=== PATIENT | male | born 1955 | race Hispanic/Latino ===

== ENCOUNTER 2018-04-28 16:13 | Emergency (ER) | payer MEDICARE, OTHER ==
[2018-04-28] MEDS ORDERED: Acetaminophen 500 MG TAB ONE (16:44)
== END 2018-04-28 16:55 | disposition home or self-care (01) ==
LOC: ERS 16:13
DX: B09 Unspecified viral infection characterized by skin and mucous membrane lesions (principal); E78.5 Hyperlipidemia, unspecified; I10 Essential (primary) hypertension; Z85.07 Personal history of malignant neoplasm of pancreas
CPT/HCPCS: 99283

== ENCOUNTER 2018-05-02 09:53 | Inpatient (IN) | payer MEDICARE ==
[2018-05-02] MEDS ORDERED: Ketorolac Tromethamine 30 MG/ML VIAL ONE (12:49)
[2018-05-02 13:20] LABS: Hemoglobin 13.6 g/dL (14.0-18.0); Mean Corpuscular HGB CONC 31.2 g/dL (32.0-36.0); Mean Corpuscular Hemoglobin 28.2 pg (27.0-31.0); Mean Corpuscular Volume 90.2 fL (78.0-98.0); Mean Platelet Volume 8.4 fL (7.4-10.4); Platelet Count 271 thou/uL (130-400); RBC Distribution Width 14.7 % (11.5-14.5); Red Blood Cell (RBC) Count 4.82 mill/uL (4.70-6.10); White Blood Cell (WBC) Count 6.7 thou/uL (4.8-10.8)
--- NOTE | 2018-05-02 13:45 | RAD ---
RIGHT HAND RADIOGRAPHS THREE VIEWS: Date: 05-02-18 Provided Clinical History: Pain. FINDINGS: Comparison is made with a study dated 01-22-17. There is no evidence for fracture. There is an area of cortical concavity involving the central aspec ts of the third metacarpal head. Joint spaces appear preserved. Alignment appears anatomic. Bone mine ralization appears normal. No periarticular erosive changes are seen. IMPRESSION: Cortical concavity involving the third metacarpal head centrally, possibly reflecting changes of oste onecrosis with subchondral collapse. POS: TPC
[2018-05-02 13:50] LABS: ALT (SGPT) 13 U/L (8-55); AST (SGOT) 13 U/L (5-34); Albumin 4.8 g/dL (3.4-4.8); Alkaline Phosphatase 114 U/L (40-150); Anion Gap 16 mmol/L (10-20); BUN (Urea Nitrogen) 18 mg/dL (8.4-25.7); Bilirubin, Total 0.3 mg/dL (0.2-1.2); Calc. Creatinine Clearance 0 mL/min (70-130); Calcium 10.6 mg/dL (7.8-10.44); Carbon Dioxide 24 mmol/L (23-31); Chloride 98 mmol/L (98-107); Estimated GFR-MDRD 89; Globulin 4.1 g/dL (2.4-3.5); Glucose 109 mg/dL (80-115); Protein, Total 8.9 g/dL (5.8-8.1); Sodium 134 mmol/L (136-145)
[2018-05-02 13:52] LABS: Anisocytosis SLIGHT = 6-15 cells (100X) (0-5/hpf); Band 2 % (5-11); Lymphocytes 10 % (21-51); MDiff Complete? YES; Monocytes 5 % (0-10); Neutrophil 83 % (42-75); Platelet Morphology Comment Appears Adequate
[2018-05-02] MEDS ORDERED: Clindamycin/D5W 900 mg/50 ml Premix Bag ONE ×2 (14:40→14:41)
[2018-05-02] MEDS ORDERED: Piperacillin/Tazobactam 4.5 GM VIAL ONE ×2 (14:40→14:41)
[2018-05-02] MEDS ORDERED: Ondansetron PF 4 MG/2 ML Vial IVP PRN (19:21)
[2018-05-02] MEDS ORDERED: HYDROcodone/Acetaminophen 5/325 mg Tablet PO PRN ×2 (19:21)
[2018-05-02] MEDS ORDERED: Ondansetron ODT 4 MG TAB SL PRN (19:21)
[2018-05-02] MEDS ORDERED: Acetaminophen 325 MG TAB PO PRN (19:56)
[2018-05-02] MEDS: Sodium Chloride 0.9% 1,000 ML IV SCH (20:46)
[2018-05-02] MEDS: Clindamycin/D5W 900 MG in Premix Bag 1 BAG IVPB SCH (20:49)
[2018-05-02] MEDS: Ketorolac Tromethamine 30 MG/ML VIAL IVP PRN (21:40)
[2018-05-02] MEDS: Piperacillin/Tazobactam 4.5 GM in Sodium Chloride 0.9% 100 ML IVPB SCH (21:42)
[2018-05-02] MEDS: Famotidine 20 MG TAB PO SCH (21:46)
--- NOTE | 2018-05-02 22:44 | HP ---
PRIMARY CARE PHYSICIAN: None. CHIEF COMPLAINT: Right hand and arm rash. HISTORY OF PRESENT ILLNESS: Mr. Marianne Groves is a pleasant 63-year-old male with past medical history of hypertension, hyperlipidemia, and pancreatic cancer. He had presented to [facility] for worsening rash and pain of his right arm. He was seen in the emergency department about 4 days ago and was treated with oral prednisone for 5 days. At this time, it was thought that he had a rash similar to [id number]. However, over the last 2 to 3 days, the rash had worsened and had spread up his right forearm. He presented today with worsening rash and pain /10. He was given IV Toradol 15 mg, which had resolved his pain. The patient's vital signs remained stable. He had remained afebrile. Lab work did not show any elevated white count. However, there was a concern for cellulitic rash. Therefore, blood cultures were obtained and he was started on IV Zosyn, vancomycin and clindamycin. He had denied any fever or chills. Denies any chest pain, shortness of breath, or abdominal pain. He denies any nausea or vomiting. He had stated that the pain started in his fingertips and went on right arm. However, this had resolved after the dose of Toradol. It was determined that the patient would be admitted under observation, Dr. Vega with Infectious Disease will be consulted for further evaluation and possible recommendations. REVIEW OF SYSTEMS: All other systems reviewed and found to be negative unless mentioned in the HPI. PAST MEDICAL HISTORY: Pancreatic cancer, hypertension, and hyperlipidemia. PAST SURGICAL HISTORY: None. PSYCHIATRIC HISTORY: None. SOCIAL HISTORY: Denies any alcohol, tobacco, or illicit drug use. KNOWN ALLERGIES: None. CURRENT HOME MEDICATIONS: 1. Prednisone 20 mg oral once daily. 2. Atorvastatin 40 mg p.o. daily. PHYSICAL EXAMINATION: VITAL SIGNS: BP 136/71, pulse 64, respirations 18, temp 97.8 degrees Fahrenheit, O2 saturations 95% on room air. GENERAL: The patient is awake, alert, and oriented x3. No acute distress noted. HEENT: Head is atraumatic, normocephalic. Pupils are round and reactive to light. Extraocular muscles intact. Moist mucous membranes are noted. NECK: Soft and supple. No JVD. No bruit noted. CARDIOVASCULAR: Positive S1 and S2. Regular rate and rhythm. No murmurs auscultated. RESPIRATORY: Clear to auscultation bilaterally. No wheezes, rales, or rhonchi. ABDOMEN: Soft, nontender. Bowel sounds present. 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 NEUROLOGIC: Cranial nerves 2 through 12 grossly intact. No focal deficits noted. Speech intact and normal. Gait is normal. PSYCHIATRIC: Good mood and affect. SKIN: Warm, dry, and intact. The patient with vesicular and pustular-like rash with surrounding erythema on the right side, diffuse patches on palmar and dorsal side of right hand, tracking up right arm. [id number] warmth and tenderness to palpation noted with no drainage. LABORATORY DATA: WBC 6.7, RBC 4.82, hemoglobin 13.6, and platelets 271. Sedimentation rate 50. Sodium 134, potassium 4.0, anion gap 16, BUN 18, creatinine 0.86, estimated GFR 89, glucose 109. Lactic acid 0.8. CRP 2.1. X-ray of right hand displayed no evidence for fracture. However, there was an area of cortical concavity involving the central aspects of the third metacarpal head. Joint spaces appear preserved in alignment and appeared anatomic. Bone mineralization appears normal with no periarticular erosion changes seen. ASSESSMENT AND PLAN: 1. Cellulitic pustular rash, blood cultures were obtained and await for results. Continue IV antibiotics, started in the emergency department. Consult placed for Dr. Vega, Infectious Disease, for further evaluation. Continue pain regimen with IV Toradol as needed along with acetaminophen. 2. Hypertension, currently stable at this time. The patient does not take any home medications. Continue to monitor vital signs closely with further adjustments pending clinical findings. 3. Hyperlipidemia. Continue the patient's home dose of atorvastatin. 4. Deep venous thrombosis and gastrointestinal prophylaxis. 5. Code status. Full code. DISPOSITION: Pending clinical findings and further workup. The patient will likely be discharged home under 2 midnights with close outpatient followup. Job ID: [id number]
[2018-05-03] MEDS ORDERED: Prevnar 13-Val Conj/PF 0.5 ML SYRINGE IM ONE ×2 (00:30→09:00)
[2018-05-03] MEDS: Clindamycin/D5W 900 MG in Premix Bag 1 BAG IVPB SCH (02:17)
[2018-05-03] MEDS: Piperacillin/Tazobactam 4.5 GM in Sodium Chloride 0.9% 100 ML IVPB SCH (02:55)
[2018-05-03] MEDS ORDERED: Vancomycin HCl 1 GM in Premix Bag 1 BAG IVPB SCH (03:30)
[2018-05-03] MEDS: Sodium Chloride 0.9% 1,000 ML IV SCH ×3 (06:31→13:00)
[2018-05-03 06:50] LABS: Anion Gap 11 mmol/L (10-20); BUN (Urea Nitrogen) 20 mg/dL (8.4-25.7); Calc. Creatinine Clearance 0 mL/min (70-130); Carbon Dioxide 24 mmol/L (23-31); Chloride 105 mmol/L (98-107); Estimated GFR-MDRD 74; Glucose 112 mg/dL (80-115); Potassium 4.5 mmol/L (3.5-5.1); Sodium 135 mmol/L (136-145)
[2018-05-03 07:19] LABS: Band 1 % (5-11); Eosinophils 1 % (0-10); Lymphocytes 32 % (21-51); MDiff Complete? YES; Mean Corpuscular Volume 90.5 fL (78.0-98.0); Mean Platelet Volume 8.3 fL (7.4-10.4); Monocytes 15 % (0-10); Neutrophil 51 % (42-75); Ovalocytes SLIGHT = 2-5 cells (100X) (0-1/hpf); Platelet Count 222 thou/uL (130-400); Platelet Morphology Comment Appears Adequate; Polychromasia SLIGHT = 2-3 cells (100X) (0-2/hpf); RBC Distribution Width 14.5 % (11.5-14.5); Red Blood Cell (RBC) Count 3.79 mill/uL (4.70-6.10); White Blood Cell (WBC) Count 5.4 thou/uL (4.8-10.8)
[2018-05-03] MEDS: Ketorolac Tromethamine 30 MG/ML VIAL IVP PRN ×2 (07:53→15:14)
[2018-05-03] MEDS: Enoxaparin Sodium 40 MG/0.4 ML SYRINGE SC SCH (07:55)
[2018-05-03] MEDS: Famotidine 20 MG TAB PO SCH ×2 (07:55→20:20)
[2018-05-03] MEDS ORDERED: Clindamycin/D5W 600 MG in Premix Bag 1 BAG IVPB SCH (08:00)
[2018-05-03 11:44] VITALS: BMI 23.3
[2018-05-03] MEDS ORDERED: Labetalol HCl 100 MG/20 ML VIAL SLOW IVP PRN (12:05)
[2018-05-03] MEDS: hydrALAZINE 20 MG/ML VIAL SLOW IVP PRN (13:01)
--- NOTE | 2018-05-03 14:03 | PDOC.PN ---
- Subjective Encounter Start Date: 05/03/18 Encounter Start Time: 13:00 Subjective: Patient reports pain earlier today but better after medications -: Denies dyspnea, chills, CP or palpations. - Objective Resuscitation Status - Order Detail: 05/02/18 19:56 Resuscitation Status Routine Co-Sign Provider: Resuscitation Status: FULL: Full Resuscitation Vital Signs & Weight: Vital Signs (12 hours) Temp Pulse Resp BP Pulse Ox 05/03/18 13:01 54 L 05/03/18 11:27 97.8 F 54 L 20 193/81 H 05/03/18 07:45 98.3 F 63 20 180/80 H 96 05/03/18 03:57 97.6 F 60 16 132/61 Weight Weight 63.5 kg I&O: 05/02/18 05/03/18 05/04/18 06:59 06:59 06:59 Intake Total 1366 Output Total 350 540 Balance 1016 -540 Result Diagrams: 05/03/18 06:04 05/03/18 06:04 Phys Exam - Physical Examination Constitutional: NAD HEENT: PERRLA, moist MMs Neck: no nodes, no JVD Respiratory: no wheezing, clear to auscultation bilateral Cardiovascular: RRR Gastrointestinal: soft, non-tender edema and erythema noted to right palm with lesions Neurological: non-focal, normal sensation, moves all 4 limbs Lymphatic: no nodes Psychiatric: normal affect, A&O x 3 Skin: cap refill <2 seconds Deviation from normal: Vesicles on erythemic bases on RT C5, C6, C7, C8 dermatones with overlying -: cellulitis on right palm Dx/Plan (1) Shingles Code(s): B02.9 - ZOSTER WITHOUT COMPLICATIONS Status: Acute (2) Cellulitis Code(s): L03.90 - CELLULITIS, UNSPECIFIED Status: Acute (3) Hypertension Code(s): I10 - ESSENTIAL (PRIMARY) HYPERTENSION Status: Chronic (4) Hyperlipemia Code(s): E78.5 - HYPERLIPIDEMIA, UNSPECIFIED Status: Chronic - Plan cont current plan of care, continue antibiotics Will continue ABX for now, Dr. Vega to see and will scrape one of the -: lesions to sent off for viral pathology. Thinks it is likely shingles -: with cellulitis. Will add anti-viral medication -: Home medication is being added, will restart -: Recheck labs in AM, monitor VS * . Review of Systems - Review of Systems Skin: Rash, Lesions (pain, redness, and warmth with lesions to palm and right arm) - Medications/Allergies Allergies/Adverse Reactions: Allergies Allergy/AdvReac Type Severity Reaction Status Date / Time No Known Drug Allergies Allergy Verified 05/02/18 19:53 Medications: Current Medications Acetaminophen (Tylenol) 650 mg PO Q4H PRN PRN Reason: Headache/Fever/Mild Pain (1-3) Enoxaparin Sodium (Lovenox) 40 mg SC 0900 [facility] Last Admin: 05/03/18 07:55 Dose: 40 mg Famotidine (Pepcid) 20 mg PO BID [facility] Last Admin: 05/03/18 07:55 Dose: 20 mg Hydralazine HCl (Apresoline) 10 mg SLOW IVP Q4H PRN PRN Reason: SBP > 180 and HR < 70 Last Admin: 05/03/18 13:01 Dose: 10 mg Sodium Chloride (Normal Saline 0.9%) 1,000 mls @ 75 mls/hr IV .[id number] [facility] Last Admin: 05/03/18 13:00 Dose: 1,000 mls Ketorolac Tromethamine (Toradol) 15 mg IVP Q6H PRN PRN Reason: Pain Stop: 05/07/18 20:26 Last Admin: 05/03/18 07:53 Dose: 15 mg Labetalol HCl (Normodyne) 20 mg SLOW IVP Q4H PRN PRN Reason: SBP > 180 and HR >/= 70 Sodium Chloride (Flush - Normal Saline) 10 ml IVF Q12HR [facility] Last Admin: 05/03/18 07:56 Dose: Not Given Sodium Chloride (Flush - Normal Saline) 10 ml IVF PRN PRN PRN Reason: Saline Flush Valacyclovir HCl (Valtrex) 1,000 mg PO TID [facility]
[2018-05-03] MEDS: valACYclovir 500 MG TAB PO SCH ×2 (15:43→20:19)
--- NOTE | 2018-05-03 15:49 | HP ---
The patient presented with a 6-day history of a painful rash starting on his palm of his right hand ascending into his upper arm. The rash is a classic dermatomal pattern from the ulnar surface of his right palm up his arm. The area on his hand acts as a secondary cellulitis. He will be treated with IV antibiotics and oral Valtrex. Job ID: [id number]
[2018-05-03] MEDS: HYDROcodone/Acetaminophen 7.5/325 mg Tablet PO PRN (21:06)
--- NOTE | 2018-05-03 23:05 | CON ---
DATE OF CONSULTATION: REASON FOR CONSULTATION: Skin lesion. HISTORY OF PRESENT ILLNESS: This is a 63-year-old male who has a history of hypertension and malignancy, which was diagnosed after he developed some nonspecific symptoms through imaging studies of his abdomen. Although in the H and P on admission, pancreatic cancer is mentioned. 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 This was managed with radiation therapy. He has not had a recurrence since for the past 3 years, which makes it unlikely that he has pancreatic cancer. The whole treatment was done at [facility] and he has a followup coming up in May. He was admitted because of new onset of skin rash in the right upper extremity extending from the forearm to the hand. It started in the palmar aspect of the right hand. He was seen in the emergency room and given oral prednisone and then the rash worsened and started spreading up his forearm associated with quite a bit of pain. No headaches. No visual symptoms, sore throat, odynophagia, or dysphagia. No cough, sputum production, or chest pain. No abdominal pain or diarrhea. No genitourinary symptoms. No joint symptoms. No neurological symptoms. 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 PAST SURGICAL HISTORY: No surgical history. PSYCHIATRIC HISTORY: None. SOCIAL HISTORY: Never smoker. [place] in town with family. ALLERGIES: NONE. CURRENT MEDICATION LIST: Includes; 1. Central. 2. Lovenox. 3. Pepcid. 4. Apresoline. 5. Toradol. 6. Normodyne. 7. Valacyclovir. PHYSICAL EXAMINATION: VITAL SIGNS: Normal. SKIN: Shows the pustular rash, dermatomal distribution C5 through C7, right upper extremity. No lymphadenopathy. HEENT: Noncontributory. NECK: Supple. LUNGS: Symmetric, clear breath sounds. CARDIAC: S1, S2. Regular rate. No S3 or S4. ABDOMEN: Soft, not distended or tender. No ascites. No bladder distention. No genital abnormalities. MUSCULOSKELETAL: No joint inflammatory activity. Pulses 1+ in dorsalis pedis. Moves extremities equally. Cognitive function appears to be intact. LABORATORY DATA: White cell count 6.7 and 5.4, hemoglobin 13.6, platelets 271, 83% neutrophils and 2% bands, lymphocytes 10% and 32%. Chemistry with a sodium 134, creatinine 0.86, calcium 10.6 and 9.0. Transaminases and alkaline phosphatase normal. CRP 2.10, albumin 4.8, globulin 4.1. Two sets of blood cultures thus far no growth. There is a hand x-ray from admission with cortical concavity third metacarpal head, possibly reflecting changes of osteonecrosis. ASSESSMENT: Some form of retroperitoneal malignancy, which was managed with radiation therapy at [facility], this was 3 years ago. The family states that it was not pancreatic cancer, now the patient has this pustular lesion and dermatomal distribution. DISCUSSION: The most likely scenario is herpes zoster in the lower cervical dermatome on the right side. We will submit the herpes zoster or varicella zoster virus PCR from swab from one of the lesions. Start Valtrex. Other possibilities would include herpes simplex enteroviral infection and pustular dermatitis, but this is much less likely than VZV infection recurrence. Job ID: [id number]
[2018-05-04] MEDS: Sodium Chloride 0.9% 1,000 ML IV SCH ×2 (00:27→12:22)
[2018-05-04] MEDS: Ketorolac Tromethamine 30 MG/ML VIAL IVP PRN ×2 (05:31→15:08)
[2018-05-04 07:20] LABS: #Eosinphils 0.2 thou/uL (0.0-0.7); #Lymphocytes 1.6 thou/uL (1.20-3.40); #Monocytes 0.8 thou/uL (0.11-0.59); #Neutrophils 4.2 thou/uL (1.40-6.50); %Basophils 0.3 % (0.0-1.0); %Eosinophils 2.9 % (0.0-10.0); %Lymphocytes 24.1 % (21.0-51.0); %Monocytes 11.2 % (0.0-10.0); %Neutrophils 61.6 % (42.0-75.0); Hemoglobin 12.2 g/dL (14.0-18.0); Mean Corpuscular HGB CONC 32.3 g/dL (32.0-36.0); Mean Corpuscular Volume 89.9 fL (78.0-98.0); Platelet Count 258 thou/uL (130-400); RBC Distribution Width 14.7 % (11.5-14.5); Red Blood Cell (RBC) Count 4.19 mill/uL (4.70-6.10); White Blood Cell (WBC) Count 6.8 thou/uL (4.8-10.8)
[2018-05-04 07:41] LABS: Anion Gap 11 mmol/L (10-20); BUN (Urea Nitrogen) 14 mg/dL (8.4-25.7); Calc. Creatinine Clearance 79 mL/min (70-130); Calcium 9.6 mg/dL (7.8-10.44); Carbon Dioxide 25 mmol/L (23-31); Chloride 105 mmol/L (98-107); Estimated GFR-MDRD Greater than 90; Glucose 112 mg/dL (80-115); Potassium 4.5 mmol/L (3.5-5.1); Sodium 136 mmol/L (136-145)
[2018-05-04] MEDS: valACYclovir 500 MG TAB PO SCH ×3 (07:58→20:23)
[2018-05-04] MEDS: Enoxaparin Sodium 40 MG/0.4 ML SYRINGE SC SCH (07:59)
[2018-05-04] MEDS: Famotidine 20 MG TAB PO SCH ×2 (07:59→20:24)
[2018-05-04 09:28] LABS: HBCM Index 0.08 S/CO (0-0.79); HBSAg Index 0.39 S/CO (0-0.99); HIV (1/2) Antibody/Antigen Non-Reactive (NonReactive); Hep A IgM AB Non-Reactive (NonReactive); Hep A IgM S/CO 0.24 S/CO (0-0.79); Hep B Surf Ag Non-Reactive S/CO (NonReactive); Hep C IgG Ab Non-Reactive (NonReactive); Hep C Index 0.49 S/CO (0-0.79); Hepatitis B Core IgM Abs Non-Reactive (NonReactive)
--- NOTE | 2018-05-04 14:31 | PDOC.PN ---
- Subjective Encounter Start Date: 05/04/18 Encounter Start Time: 11:00 Subjective: pain in right UE is slightly better -: is amb - Objective Resuscitation Status - Order Detail: 05/02/18 19:56 Resuscitation Status Routine Co-Sign Provider: Resuscitation Status: FULL: Full Resuscitation MAR Reviewed: Yes Vital Signs & Weight: Vital Signs (12 hours) Temp Pulse Resp BP BP Pulse Ox 05/04/18 07:54 95 05/04/18 06:51 97.8 F 61 17 169/74 H 95 05/04/18 04:00 98.5 F 65 20 168/69 H 98 Weight Weight 139 lb 15.896 oz I&O: 05/03/18 05/04/18 05/05/18 06:59 06:59 06:59 Intake Total 1366 2795 Output Total 350 1780 300 Balance 1016 1015 -300 Result Diagrams: 05/04/18 07:06 05/04/18 07:06 Phys Exam - Physical Examination HEENT: PERRLA, moist MMs Neck: no JVD, supple Respiratory: no wheezing, no rales Cardiovascular: RRR, no significant murmur Gastrointestinal: soft, non-tender, positive bowel sounds Musculoskeletal: pulses present right UE has zoster vesicles in forearm, palmar hand has pustular lesions Neurological: non-focal, moves all 4 limbs Psychiatric: normal affect, A&O x 3 Dx/Plan (1) Shingles Code(s): B02.9 - ZOSTER WITHOUT COMPLICATIONS Status: Acute Qualifiers: Herpes zoster complications: with nervous system involvement Comment: has more than 1 dermatome involved, ?immunosuppressed due to underlying malignancy (2) 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 Review of Systems - Medications/Allergies Allergies/Adverse Reactions: Allergies Allergy/AdvReac Type Severity Reaction Status Date / Time No Known Drug Allergies Allergy Verified 05/02/18 19:53 Medications: Current Medications Acetaminophen (Tylenol) 650 mg PO Q4H PRN PRN Reason: Headache/Fever/Mild Pain (1-3) Hydrocodone Bitart/Acetaminophen ([place] 7.5/325) 1 tab PO Q4H PRN PRN Reason: Mild Pain (1-3) Last Admin: 05/03/18 21:06 Dose: 1 tab Enoxaparin Sodium (Lovenox) 40 mg SC 0900 [facility] Last Admin: 05/04/18 07:59 Dose: 40 mg Famotidine (Pepcid) 20 mg PO BID [facility] Last Admin: 05/04/18 07:59 Dose: 20 mg Hydralazine HCl (Apresoline) 10 mg SLOW IVP Q4H PRN PRN Reason: SBP > 180 and HR < 70 Last Admin: 05/03/18 13:01 Dose: 10 mg Sodium Chloride (Normal Saline 0.9%) 1,000 mls @ 75 mls/hr IV .[id number] [facility] Last Admin: 05/04/18 12:22 Dose: 1,000 mls Ketorolac Tromethamine (Toradol) 15 mg IVP Q6H PRN PRN Reason: Pain Stop: 05/07/18 20:26 Last Admin: 05/04/18 05:31 Dose: 15 mg Labetalol HCl (Normodyne) 20 mg SLOW IVP Q4H PRN PRN Reason: SBP > 180 and HR >/= 70 Sodium Chloride (Flush - Normal Saline) 10 ml IVF Q12HR [facility] Last Admin: 05/04/18 07:59 Dose: 10 ml Sodium Chloride (Flush - Normal Saline) 10 ml IVF PRN PRN PRN Reason: Saline Flush Valacyclovir HCl (Valtrex) 1,000 mg PO TID [facility] Last Admin: 05/04/18 07:58 Dose: 1,000 mg
[2018-05-04] MEDS: hydrALAZINE 20 MG/ML VIAL SLOW IVP PRN ×2 (15:16→20:25)
[2018-05-04] MEDS ORDERED: ISOVUE-370 76%-LOCM 1 ML ONE (16:42)
--- NOTE | 2018-05-04 17:50 | CT ---
EXAM: CT abdomen pelvis with contrast HISTORY: Pancreatic mass COMPARISON: None FINDINGS: There is a round nodule within the right middle lobe measuring 6 mm. incompletely evaluated on this examination. No pericardial effusion. There is a large lobular retroperitoneal mass in the aortocaval space with v jordan high density measuring 200 Hounsfield units. It measures 10 cm in transverse x 6.3 cm in AP dimen eugenie x approximately 11 cm in craniocaudad dimension. There is splaying of the IVC and aorta. The mass appears to be separate from the pancreas although there is anterior displacement of the panc reatic head and body. There is congestion of the retroperitoneal due to compression of the mass by th e IVC. There appears to be a coil in the right lumbar vessel at the level of L1. No dilated large or small bowel. There is a very large draining left pericolic and right pericolic ve ssels. The azygos and hemiazygos veins are enlarged. The appendix visualized is normal. Liver, spleen, adren al glands and pancreas are unremarkable. IMPRESSION: 1. Large retroperitoneal mass as describe with very high Hounsfield units. 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 This is separate from the pancreas primary neoplasm of the pancreas is felt much less likely. There is compression upon th e IVC with large lumbar and pericolic draining veins. 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 2. 50% narrowing proximal 2 cm SMA due to atherosclerotic plaque. 3. 6 mm nodule right middle lobe. Nonemergent CT chest recommended. Code CR - Nurse identified of findings via telephone at 5:10 p.m. POS: TAMANNA
[2018-05-04] MEDS: HYDROcodone/Acetaminophen 7.5/325 mg Tablet PO PRN (22:42)
[2018-05-05] MEDS: Sodium Chloride 0.9% 1,000 ML IV SCH ×2 (00:12→16:44)
[2018-05-05] MEDS: valACYclovir 500 MG TAB PO SCH ×3 (08:33→20:29)
[2018-05-05] MEDS: Famotidine 20 MG TAB PO SCH ×2 (08:33→20:29)
[2018-05-05] MEDS: Enoxaparin Sodium 40 MG/0.4 ML SYRINGE SC SCH (08:34)
[2018-05-05] MEDS: Ketorolac Tromethamine 30 MG/ML VIAL IVP PRN (11:23)
--- NOTE | 2018-05-05 13:25 | PDOC.PN ---
- Subjective Encounter Start Date: 05/05/18 Encounter Start Time: 07:45 Subjective: pain is less and its begining to crust -: still has intact vesicles - Objective Resuscitation Status - Order Detail: 05/02/18 19:56 Resuscitation Status Routine Co-Sign Provider: Resuscitation Status: FULL: Full Resuscitation MAR Reviewed: Yes Vital Signs & Weight: Vital Signs (12 hours) Temp Pulse Resp BP BP Pulse Ox 05/05/18 11:26 97.5 F L 62 20 167/69 H 97 05/05/18 08:10 96 05/05/18 08:00 98.5 F 64 20 170/68 H 96 05/05/18 04:00 98.4 F 65 14 151/68 H 96 Weight Weight 139 lb 15.896 oz I&O: 05/04/18 05/05/18 05/06/18 06:59 06:59 06:59 Intake Total 2795 3225 Output Total 1780 1150 Balance 1015 2075 Result Diagrams: 05/04/18 07:06 05/04/18 07:06 Phys Exam - Physical Examination HEENT: PERRLA, moist MMs Neck: no JVD, supple Respiratory: no wheezing, no rales Cardiovascular: RRR, no significant murmur Gastrointestinal: soft, non-tender, positive bowel sounds Musculoskeletal: no edema, pulses present right forearm has zoster, right palm necrotic coalescent pustules Neurological: non-focal, moves all 4 limbs Psychiatric: normal affect, A&O x 3 Dx/Plan (1) Shingles Code(s): B02.9 - ZOSTER WITHOUT COMPLICATIONS Status: Acute Qualifiers: Herpes zoster complications: with nervous system involvement Comment: has more than 1 dermatome involved, ?immunosuppressed due to underlying malignancy (2) Abdominal malignancy Code(s): 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 NEOPLASM OF ABDOMEN Status: Chronic Comment: retroperitoneal mass s/o sarcoma, has f/u appt at [facility] next month (3) Hyperlipemia Code(s): E78.5 - HYPERLIPIDEMIA, UNSPECIFIED Status: Chronic Qualifiers: Hyperlipidemia type: mixed hyperlipidemia Qualified Code(s): E78.2 - Mixed hyperlipidemia (4) Hypertension Code(s): I10 - ESSENTIAL (PRIMARY) HYPERTENSION Status: Chronic Qualifiers: Hypertension type: essential hypertension Qualified Code(s): I10 - Essential (primary) hypertension - Plan CT abd shows findings s/o sarcoma with retroperitoneal mass -: is on valtrex tid, toradol and narco prn -: dc plan per ID advice * . Review of Systems - Medications/Allergies Allergies/Adverse Reactions: Allergies Allergy/AdvReac Type Severity Reaction Status Date / Time No Known Drug Allergies Allergy Verified 05/02/18 19:53 Medications: Current Medications Acetaminophen (Tylenol) 650 mg PO Q4H PRN PRN Reason: Headache/Fever/Mild Pain (1-3) Hydrocodone Bitart/Acetaminophen ([place] 7.5/325) 1 tab PO Q4H PRN PRN Reason: Mild Pain (1-3) Last Admin: 05/04/18 22:42 Dose: 1 tab Enoxaparin Sodium (Lovenox) 40 mg SC 0900 [facility] Last Admin: 05/05/18 08:34 Dose: 40 mg Famotidine (Pepcid) 20 mg PO BID [facility] Last Admin: 05/05/18 08:33 Dose: 20 mg Hydralazine HCl (Apresoline) 10 mg SLOW IVP Q4H PRN PRN Reason: SBP > 180 and HR < 70 Last Admin: 05/04/18 20:25 Dose: 10 mg Sodium Chloride (Normal Saline 0.9%) 1,000 mls @ 75 mls/hr IV .[id number] [facility] Last Admin: 05/05/18 00:12 Dose: 1,000 mls Ketorolac Tromethamine (Toradol) 15 mg IVP Q6H PRN PRN Reason: Pain Stop: 05/07/18 20:26 Last Admin: 05/05/18 11:23 Dose: 15 mg Labetalol HCl (Normodyne) 20 mg SLOW IVP Q4H PRN PRN Reason: SBP > 180 and HR >/= 70 Sodium Chloride (Flush - Normal Saline) 10 ml IVF Q12HR [facility] Last Admin: 05/05/18 08:38 Dose: 10 ml Sodium Chloride (Flush - Normal Saline) 10 ml IVF PRN PRN PRN Reason: Saline Flush Valacyclovir HCl (Valtrex) 1,000 mg PO TID [facility] Last Admin: 05/05/18 08:33 Dose: 1,000 mg
[2018-05-05] MEDS: hydrALAZINE 20 MG/ML VIAL SLOW IVP PRN (16:43)
[2018-05-05] MEDS: HYDROcodone/Acetaminophen 7.5/325 mg Tablet PO PRN (21:52)
[2018-05-06] MEDS: Sodium Chloride 0.9% 1,000 ML IV SCH (02:54)
[2018-05-06 07:31] VITALS: BP 143/74; TEMP 98.2
[2018-05-06] MEDS: Enoxaparin Sodium 40 MG/0.4 ML SYRINGE SC SCH (08:35)
[2018-05-06] MEDS: Famotidine 20 MG TAB PO SCH (08:35)
[2018-05-06] MEDS: valACYclovir 500 MG TAB PO SCH (08:35)
--- NOTE | 2018-05-06 10:26 | PDOC.PN ---
- Subjective Encounter Start Date: 05/06/18 Encounter Start Time: 07:20 Subjective: pain is better - Objective Resuscitation Status - Order Detail: 05/02/18 19:56 Resuscitation Status Routine Co-Sign Provider: Resuscitation Status: FULL: Full Resuscitation MAR Reviewed: Yes Vital Signs & Weight: Vital Signs (12 hours) Temp Pulse Resp BP BP Pulse Ox 05/06/18 08:00 98 05/06/18 07:00 98.2 F 60 18 143/74 H 98 05/06/18 04:00 98.0 F 56 L 16 165/77 H 96 05/05/18 23:43 97.9 F 66 16 148/71 H 96 Weight Weight 139 lb 15.896 oz I&O: 05/05/18 05/06/18 05/07/18 06:59 06:59 06:59 Intake Total 3225 3125 Output Total 1150 1600 Balance 2075 1525 Result Diagrams: 05/04/18 07:06 05/04/18 07:06 Phys Exam - Physical Examination HEENT: PERRLA, moist MMs Neck: no JVD, supple Respiratory: no wheezing, no rales Cardiovascular: RRR, no significant murmur Gastrointestinal: soft, non-tender, positive bowel sounds Musculoskeletal: pulses present right hand pustular lesions are slowly healing, has crusting+blisters on fo Neurological: non-focal, moves all 4 limbs Psychiatric: normal affect, A&O x 3 Dx/Plan (1) Shingles Code(s): B02.9 - ZOSTER WITHOUT COMPLICATIONS Status: Acute Qualifiers: Herpes zoster complications: with nervous system involvement Comment: has more than 1 dermatome involved, ?immunosuppressed due to underlying malignancy (2) Abdominal malignancy Code(s): 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 NEOPLASM OF ABDOMEN Status: Chronic Comment: retroperitoneal mass s/o sarcoma, has f/u appt at [facility] next month (3) Hyperlipemia Code(s): E78.5 - HYPERLIPIDEMIA, UNSPECIFIED Status: Chronic Qualifiers: Hyperlipidemia type: mixed hyperlipidemia Qualified Code(s): E78.2 - Mixed hyperlipidemia (4) Hypertension Code(s): I10 - ESSENTIAL (PRIMARY) HYPERTENSION Status: Chronic Qualifiers: Hypertension type: essential hypertension Qualified Code(s): I10 - Essential (primary) hypertension - Plan is on valtrex -: vzv and hsv pcr are pending -: add neurontin tid -: dc plan per ID adv * . Review of Systems - Medications/Allergies Allergies/Adverse Reactions: Allergies Allergy/AdvReac Type Severity Reaction Status Date / Time No Known Drug Allergies Allergy Verified 05/02/18 19:53 Medications: Current Medications Acetaminophen (Tylenol) 650 mg PO Q4H PRN PRN Reason: Headache/Fever/Mild Pain (1-3) Hydrocodone Bitart/Acetaminophen ([place] 7.5/325) 1 tab PO Q4H PRN PRN Reason: Mild Pain (1-3) Last Admin: 05/05/18 21:52 Dose: 1 tab Enoxaparin Sodium (Lovenox) 40 mg SC 0900 [facility] Last Admin: 05/06/18 08:35 Dose: 40 mg Famotidine (Pepcid) 20 mg PO BID [facility] Last Admin: 05/06/18 08:35 Dose: 20 mg Hydralazine HCl (Apresoline) 10 mg SLOW IVP Q4H PRN PRN Reason: SBP > 180 and HR < 70 Last Admin: 05/05/18 16:43 Dose: 10 mg Labetalol HCl (Normodyne) 20 mg SLOW IVP Q4H PRN PRN Reason: SBP > 180 and HR >/= 70 Sodium Chloride (Flush - Normal Saline) 10 ml IVF Q12HR [facility] Last Admin: 05/06/18 08:35 Dose: Not Given Sodium Chloride (Flush - Normal Saline) 10 ml IVF PRN PRN PRN Reason: Saline Flush Valacyclovir HCl (Valtrex) 1,000 mg PO TID [facility] Last Admin: 05/06/18 08:35 Dose: 1,000 mg
[2018-05-06 19:08] LABS: HSV 2 - DNA Negative (Negative)
[2018-05-06] MEDS ORDERED: Gabapentin 300 MG CAP PO SCH (21:00)
--- NOTE | 2018-05-07 14:14 | DIS ---
DATE OF ADMISSION: 05/03/2018 DATE OF DISCHARGE: 05/06/2018 DISCHARGE DISPOSITION: Home. 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 PROCEDURES DONE DURING HOSPITALIZATION: CT of the abdomen and pelvis with contrast done showed large retroperitoneal mass with very high Hounsfield unit. 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 6 mm nodule in the right middle lobe. H and H 12 and 37, platelet count 258. VZV DNA PCR was positive with a positive A. HIV-1 and -2 nonreactive. HSV-1 and -2 DNA PCR was negative. Acute hepatitis panel was negative. BUN 14 and creatinine 0.8. CRP was 2.1. DISCHARGE MEDICATIONS: 1. Valacyclovir 1000 mg p.o. three times daily for another 7 days. 2. Terazosin 4 mg p.o. twice daily. 3. Atorvastatin 40 mg p.o. daily. ALLERGIES: NO KNOWN DRUG ALLERGIES. DISCHARGE PLAN: The patient will follow up with Dr. Vega in 2 weeks. He also needs to follow up with his oncologist at [facility] as advised. BRIEF COURSE DURING HOSPITALIZATION: The patient initially came to ER with complaints of the right hand and arm rash with blistering and severe pain. 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 He has been following up at [facility]. The next followup is next month. He is currently not on any chemo or radiation at present. In view of the patient's atypical presentation, he has had consultation with Dr. Vega. The patient was placed on valacyclovir 1 g three times daily and is responding well to it. There are some lesions already crusting, but there are still other lesions which still of blisters. He is otherwise remained hemodynamically stable and will be shortly discharged home. He needs to follow up with Dr. Vega in 2 weeks. Please see a [id number] documentation for the day of discharge on [facility]. Job ID: [id number]
== END 2018-05-06 12:40 | disposition home or self-care (01) | DRG 596 ==
LOC: ERS 09:53 → 3SE 15:47 → OBSVTOIN 05-03 14:00 → T4-A 05-03 16:00
PROVIDERS: ADMIT Internal Medicine; ATTEND Internal Medicine
DX: B02.9 Zoster without complications (principal); L03.113 Cellulitis of right upper limb; I10 Essential (primary) hypertension; C76.2 Malignant neoplasm of abdomen; E78.5 Hyperlipidemia, unspecified; Z85.07 Personal history of malignant neoplasm of pancreas; Z92.3 Personal history of irradiation
CPT/HCPCS: 36415; 74177; 80048; 80053; 80074; 83605; 85025; 85652; 86140; 87040; 87389; 87529; 87798; 90471; 90662; 90670; G0008; G0009; J0360; J1650; J1885; J2543; J3370; J3490; J7050; Q9966

== ENCOUNTER 2019-02-24 07:39 | Emergency (ER) | payer OTHER, MEDICAID ==
--- NOTE | 2019-02-24 09:42 | RAD ---
CHEST 2 VIEWS: HISTORY: Fever and cough. FINDINGS: Heart size is normal. The lungs are clear. No pneumonia, edema, pleural effusion, or other acute pr ocess. IMPRESSION: No significant acute intrathoracic disease. POS: [facility]
== END 2019-02-24 10:30 | disposition home or self-care (01) ==
LOC: ERS 07:39
DX: J06.9 Acute upper respiratory infection, unspecified (principal); E78.5 Hyperlipidemia, unspecified; I10 Essential (primary) hypertension
CPT/HCPCS: 71046; 87804